=== PATIENT | female | born 1980 | race Caucasian/White ===

== ENCOUNTER 2019-06-25 10:04 | Outpatient (CLI) | payer OTHER ==
[2019-06-25] MEDS ORDERED: HYDR-3653 PO (11:37)
== END 2019-06-25 23:59 | disposition home or self-care (01) ==
LOC: STAR 10:04
PROVIDERS: ATTEND Surgery
DX: Z01.818 Encounter for other preprocedural examination (principal); Z11.59 Encounter for screening for other viral diseases
CPT/HCPCS: U0001

== ENCOUNTER 2019-06-29 07:24 | Day surgery (SDC) | payer OTHER ==
[2019-06-25 11:17] VITALS: BP 120/73
[~2019-06-29] VITALS: Ht 162.6 cm; Wt 60.9 kg
[~2019-06-29 07:24] MED LIST changes: -HYDROmorphone 1 MG/ML, 1ML INJ ONE
[2019-06-29] MEDS ORDERED: LACTATED RINGERS 1,000 ML IV SCH (07:42)
[2019-06-29] MEDS ORDERED: CHLORHEXIDINE 15 ML UDC MM ONE (08:00)
[2019-06-29 08:34] VITALS: BP 120/73
[2019-06-29 08:34] LABS: HCG UR SG 1.019 (1.003-1.030)
[2019-06-29] MEDS ORDERED: ISOSULFAN BLUE 10 MG/ML, 5ML IV ONE (09:04)
[2019-06-29] MEDS ORDERED: BUPIVACAINE/PF 0.25% ONE (09:04)
[2019-06-29] MEDS ORDERED: MIDAZOLAM 1 MG/ML, 2ML ONE (09:10)
[2019-06-29] MEDS ORDERED: FENTANYL PF 250 MCG/5ML ONE (09:11)
[2019-06-29] MEDS ORDERED: NALOXONE 1 MG/ML, 2ML ONE (09:13)
[2019-06-29] MEDS ORDERED: NALOXONE 0.4 MG/ML, 1ML ONE (09:13)
[2019-06-29] MEDS ORDERED: PROPOFOL 50 ML ONE (09:13)
[2019-06-29] MEDS ORDERED: PROMETHAZINE 25 MG SUPP PR PRN (09:30)
[2019-06-29] MEDS ORDERED: PROMETHAZINE 25 MG/ML, 1ML IV PRN (09:30)
[2019-06-29] MEDS ORDERED: PROMETHAZINE 12.5 MG SUPP PR PRN (09:30)
[2019-06-29] MEDS ORDERED: LORazepam 2 MG/ML, 1ML IVPush PRN (09:30)
[2019-06-29] MEDS ORDERED: ONDANSETRON 2MG/ML, 2ML IV PRN (09:30)
[2019-06-29] MEDS ORDERED: ONDANSETRON ODT 8 MG PO PRN (09:30)
[2019-06-29] MEDS ORDERED: ACETAMINOPHEN 325 MG TABLET PO PRN (09:30)
[2019-06-29] MEDS ORDERED: SUCCINYLCHOLINE 20 MG/ML, 10ML ONE (09:36)
[2019-06-29] MEDS ORDERED: ONDANSETRON 2MG/ML, 2ML ONE (09:36)
[2019-06-29] MEDS ORDERED: NEOSTIGMINE 1 MG/ML, 10ML ONE (09:36)
[2019-06-29] MEDS ORDERED: GLYCOPYRROLATE 0.2MG/1ML, 5ML ONE (09:36)
[2019-06-29] MEDS ORDERED: ROCURONIUM 10MG/ML,5ML ONE (09:36)
[2019-06-29] MEDS ORDERED: CEFAZOLIN 1,000 MG ONE (09:36)
[2019-06-29] MEDS ORDERED: DEXAMETHASONE 4 MG/ML, 1ML ONE (09:36)
[2019-06-29] MEDS ORDERED: PROPOFOL 10 MG/ML, 20ML ONE (09:36)
[2019-06-29] MEDS ORDERED: SUGAMMADEX 200 MG/2 ML IVPush ONE (09:56)
[2019-06-29] MEDS: FENTANYL PF 100 MCG/2ML IV PRN ×2 (10:12→10:20)
[2019-06-29] MEDS ORDERED: MEPERIDINE/PF 25MG/ML,1ML ONE (10:13)
[2019-06-29] MEDS ORDERED: FENTANYL PF 100 MCG/2ML ONE (10:13)
[2019-06-29] MEDS ORDERED: OXYcodone 5 MG/5 ML ORAL.SOL UDC ONE ×2 (10:13→11:17)
[2019-06-29] MEDS: OXYcodone 5 MG/5 ML ORAL.SOL UDC PO PRN ×2 (10:20→11:20)
[2019-06-29] MEDS: HYDROmorphone 2 MG/ML, 1ML IVPush PRN ×2 (10:26→10:35)
== END 2019-06-29 12:15 | disposition home or self-care (01) ==
LOC: OUT 07:24
PROVIDERS: ATTEND Surgery
DX: C50.212 Malignant neoplasm of upper-inner quadrant of left female breast (principal); F41.9 Anxiety disorder, unspecified; G43.909 Migraine, unspecified, not intractable, without status migrainosus; Z17.0 Estrogen receptor positive status [ER+]; Z79.891 Long term (current) use of opiate analgesic; Z97.5 Presence of (intrauterine) contraceptive device; Z88.8 Allergy status to other drugs, medicaments and biological substances; Z80.3 Family history of malignant neoplasm of breast; Z82.49 Family history of ischemic heart disease and other diseases of the circulatory system
CPT/HCPCS: 19301; 38525; 76098; 81025; 88307; J0690; J1100; J1170; J2250; J2310; J2405; J2704; J2710; J3010; J3490; J7120; J0330

== ENCOUNTER → 2019-06-29 | Outpatient (CLI) | payer OTHER ==
[~2019-06-29] MED LIST: HYDR-3653 PO; HYDROmorphone 1 MG/ML, 1ML INJ ONE
== END | disposition home or self-care (01) ==
LOC: RAD 08:00
PROVIDERS: ATTEND Surgery
DX: C50.219 Malignant neoplasm of upper-inner quadrant of unspecified female breast (principal)
CPT/HCPCS: 38792; A9541

== ENCOUNTER 2019-07-24 07:20 | Outpatient (CLI) | payer OTHER | END 2019-07-24 23:59 | disposition home or self-care (01) | LOC: ROC 07:20 | PROVIDERS: ATTEND Radiology Radiation Oncology | DX: C50.212 Malignant neoplasm of upper-inner quadrant of left female breast (principal); F41.9 Anxiety disorder, unspecified; Z79.891 Long term (current) use of opiate analgesic; Z01.818 Encounter for other preprocedural examination | CPT/HCPCS: 99214; G0463 ==

== ENCOUNTER → 2019-08-11 | Outpatient (CLI) | payer OTHER | END | disposition home or self-care (01) | LOC: LAB 12:26 | PROVIDERS: ATTEND Radiology Radiation Oncology | DX: Z32.02 Encounter for pregnancy test, result negative (principal) | CPT/HCPCS: 36415; 84703 ==

== ENCOUNTER → 2020-02-12 | Outpatient (CLI) | payer OTHER ==
[2020-02-12 11:14] LABS: INTERNATIONAL NORMALIZED RATIO 1.02 (0.93-1.1); PROTHROMBIN TIME 10.8 Seconds (9.6-11.5)
[2020-02-12 11:33] LABS: MEAN CORPUSCULAR HEMOGLOBIN 32.6 pg (27.0-34.8); MEAN CORPUSCULAR HGB CONC 34.5 g/dL (32.4-35.8); MEAN PLATELET VOLUME 8.1 fL (7.4-10.4); PLATELET COUNT 218 x10^3/uL (130-400); RED BLOOD COUNT 4.48 x10^6/uL (3.82-5.3); RED CELL DISTRIBUTION WIDTH 12.9 % (9.6-15.2)
== END | disposition home or self-care (01) ==
LOC: LAB 10:49
PROVIDERS: ATTEND Student in an Organized Health Care Education/Training Program
DX: R23.8 Other skin changes (principal)
CPT/HCPCS: 36415; 85027; 85610; 85730

== ENCOUNTER 2020-03-04 09:05 | Outpatient (CLI) | payer OTHER | END 2020-03-04 23:59 | disposition home or self-care (01) | LOC: CFH 09:05 | PROVIDERS: ATTEND Surgery | DX: N63.14 Unspecified lump in the right breast, lower inner quadrant (principal) | CPT/HCPCS: 76642; 77061; 77065; G0279 ==

== ENCOUNTER 2020-03-21 08:13 | Outpatient (CLI) | payer OTHER ==
[2020-03-21] MEDS ORDERED: LIDOCAINE 1%-EPI 1:100K, 20ML ONE (08:15)
[2020-03-21] MEDS ORDERED: SODIUM BICARBONATE 4.2%, 5ML ONE (08:15)
[2020-03-21] MEDS ORDERED: LIDOCAINE 1%, 20ML ONE (08:15)
== END 2020-03-21 23:59 | disposition home or self-care (01) ==
LOC: CFH 08:13
PROVIDERS: ATTEND Surgery
DX: D24.1 Benign neoplasm of right breast (principal); F41.9 Anxiety disorder, unspecified; G43.909 Migraine, unspecified, not intractable, without status migrainosus; F31.89 Other bipolar disorder; Z85.3 Personal history of malignant neoplasm of breast; Z98.890 Other specified postprocedural states; Z79.899 Other long term (current) drug therapy; Z88.8 Allergy status to other drugs, medicaments and biological substances; Z72.89 Other problems related to lifestyle; Z82.49 Family history of ischemic heart disease and other diseases of the circulatory system; Z80.1 Family history of malignant neoplasm of trachea, bronchus and lung
CPT/HCPCS: 19083; 77065; 88305; J3490